=== PATIENT | male | born 1965 | race Caucasian/White ===

== ENCOUNTER 2020-05-29 17:16 | Emergency (ER) | payer BC ==
[2020-05-29] MEDS ORDERED: Famotidine 20 MG/2 ML SDV IVPUSH ONE (17:31)
[2020-05-29] MEDS ORDERED: Sodium Chloride 0.9% 10 ML Syringe FLUSH PRN (17:31)
--- NOTE | 2020-05-29 17:31 | EDM.PDOC ---
ED HPI GENERAL MEDICAL PROBLEM - General Chief Complaint: General Stated Complaint: "stomach ache/backache" Time Seen by Provider: 05/29/20 17:28 Source of Information: Reports: Patient, Family (), Old Records ([facility] chart/EMR) History Limitations: Reports: No Limitations - History of Present Illness INITIAL COMMENTS - FREE TEXT/NARRATIVE: The patient was brought to the emergency room via private automobile for evaluation of a one-week history of multiple nonspecific symptoms including epigastric discomfort consisting with "feeling hungry" with additional dry burning eyes and nonspecific lower mid 4/10 thoracic back pain. He has also noticed that his blood pressure has been somewhat elevated recently including at time of eye exam yesterday. His eye symptoms have improved with hydrops received from his chess instructor. The patient denies any chest pain/pressure, heart flutter, dizziness, orthostasis, orthopnea, diaphoresis, paresthesias, recent decreased exercise tolerance, or any other anginal-type symptoms. No recent history of abdominal pain, heartburn, nausea, diarrhea, melena, gross hematochezia, or any food intolerance, including fatty foods, etc. with normal bowel movement earlier this morning. He denies any gross hematuria, colic, UTI symptoms. The patient also denies any recent fever, cough, wheezing, dyspnea, etc.. No history of recent headaches, visual changes, diplopia, change in mental status, or other change in neurological status. Onset: Gradual Duration: Getting Worse, Intermittent Location: Reports: Abdomen, Back, Radiates to (As above). Denies: Head, Face, Neck, Chest, Pelvis, Upper Extremity, Left, Upper Extremity, Right Quality: Reports: Ache Severity: Mild Improves with: Reports: None Worsens with: Reports: None Context: Reports: Other (As above). Denies: Sick Contact, Trauma Associated Symptoms: Denies: Confusion, Chest Pain, Cough, Diaphoresis, Fever/Chills, Headaches, Loss of Appetite, Malaise, Nausea/Vomiting, Rash, Seizure, Shortness of Breath, Syncope Treatments EMERGENCY MEDICAL SERVICES COORDINATOR: Reports: Other (see below) (None) Middle Back Pain Score (Numeric/FACES): 4 - Related Data Allergies Allergy/AdvReac Type Severity Reaction Status Date / Time No Known Allergies Allergy Verified 05/29/20 17:17 Home Meds: Home Meds atorvaSTATin Calcium [Atorvastatin Calcium] 10 mg PO BEDTIME 11/01/18 [History] Multivit-Min/Folic/Vit K/Lycop [Men's 50 Plus Daily Formula Tb] 1 tab PO DAILY 05/29/20 [History] Omeprazole 20 mg PO BIDAC #20 cap.sr 05/29/20 [Rx] lisinopriL [Lisinopril] 5 mg PO BID #1 tablet 05/29/20 [Rx] Past Medical History HEENT History: Reports: Allergic Rhinitis, Cataract, Impaired Vision, Other (See Below). Denies: Glaucoma, Hard of Hearing, Macular Degeneration, Otitis Media, Retinal Detachment Other HEENT History: Presbyopia, Myopia, Astigmatism with the patient wearing glasses. Cardiovascular History: Reports: Arrhythmia, High Cholesterol, Hypertension. Denies: Afib, Aneurysm, Blood Clots/VTE/DVT, CAD, Heart Failure, Heart Murmur, SC, PVD, Syncope Other Cardiovascular History: Sinus bradycardia. Mixed hyperlipidemia. Respiratory History: Reports: None. Denies: Asthma, Bronchitis, Recurrent, COPD, Intubation, Previous, PE, Pneumonia, Recurrent, Pneumothorax, Sleep Apnea, TB Gastrointestinal History: Reports: Fatty Liver, Other (See Below). Denies: Celiac Disease, Cholelithiasis, Chronic Constipation, Chronic Diarrhea, Colon Polyp, Diverticulosis, Fecal Incontinence, Gastritis, GERD, GI Bleed, Hemorrhoids, Hepatitis, Irritable Bowel Syndrome, Jaundice, Pancreatitis, PUD Other Gastrointestinal History: LFTs elevation secondary to fatty liver. Genitourinary History: Reports: None. Denies: Acute Renal Failure, BPH, Chronic Renal Insuffiency, Renal Calculus, STD, Urinary Incontinence, UTI, Recurrent Musculoskeletal History: Reports: Arthritis, Back Pain, Chronic, Fracture, Osteoarthritis, Other (See Below). Denies: Amputation, Gout, Neck Pain, Chronic, RA, SLE Other Musculoskeletal History: Medial meniscus tear of left knee in 2014. Left ankle fracture about age 4. Neurological History: Reports: None. Denies: Cerebral Aneurysms, Concussion, CVA, Headaches, Chronic, Head Trauma, Migraines, MS, Neuropathy, Peripheral, Parkinson's, Seizure, TIA Psychiatric History: Reports: None. Denies: Abuse, Victim of, ADD, ADHD, Addiction, Anxiety, Depression, Psych Hospitalization(s), PTSD, Suicide Attempt, Suicidal Ideation Endocrine/Metabolic History: Reports: Obesity/BMI 30+. Denies: Diabetes, Type I, Diabetes, Type II, Diabetes Mellitus, Type 3c, Hypothyroidism, IDDM Hematologic History: Reports: None. Denies: Anemia, Blood Transfusion(s), Iron Deficiency Immunologic History: Reports: None. Denies: AIDS, HIV, SLE Oncologic (Cancer) History: Reports: None. Denies: Basal Cell Carcinoma, Colon, Hodgkin's Lymphoma, Leukemia, Malignant Melanoma, Non-Hodgkin's Lymphoma, Prostate, Squamous Cell Carcinoma Dermatologic History: Reports: None. Denies: Eczema, Psoriasis - Infectious Disease History Infectious Disease History: Reports: Chicken Pox. Denies: C-Difficile, Measles, Meningitis, Mononucleosis, MRSA, Mumps, Pertussis (Whooping Cough), Rheumatic Fever, Rubella, Scarlet Fever, Shingles, TB, VRE - Past Surgical History Head Surgeries/Procedures: Reports: None HEENT Surgical History: Reports: Oral Surgery, Other (See Below). Denies: Adenoidectomy, Cataract Surgery, Eye Surgery, Laser Surgery, LASIK, Myringotomy w Tube(s), Naso-Sinus Surgery, Tonsillectomy Other HEENT Surgeries/Procedures: Right lower dental implants in about 2018. Cardiovascular Surgical History: Reports: None. Denies: Varicose Respiratory Surgical History: Reports: None. Denies: Thoracentesis GI Surgical History: Reports: Colonoscopy, Other (See Below). Denies: Appendectomy, Cholecystectomy, EGD, Hernia, Abdominal, Hernia, Inguinal, Hernia Repair/Other, Polypectomy Other GI Surgeries/Procedures: Colonoscopy on 11/02/18. Male Surgical History: Reports: Circumcision, Other (See Below). Denies: Vasectomy Other Male Surgeries/Procedures: Circumcision as an infant. Endocrine Surgical History: Reports: None. Denies: Thyroid Biopsy Neurological Surgical History: Denies: C-Spine, Discectomy, Intracranial, Laminectomy, Lumbar Spine, Sacral Spine, Spinal Fusion, Thoracic Spine, Vertebroplasty Musculoskeletal Surgical History: Reports: Arthroscopic Knee, Arthroscopic Procedure, Other (See Below). Denies: Joint Replacement, ORIF, Shoulder Surgery Other Musculoskeletal Surgeries/Procedures:: Laparoscopic Left knee partial meniscectomy with debridement on 12/17/13. Oncologic Surgical History: Reports: None Dermatological Surgical History: Reports: None - Past Imaging History Past Imaging History: Reports: MRI (Left Knee in 2013), Stress Testing (Cardiolite Stress test in about 2009), Ultrasound (Abdominal ultrasound on 12/12/12) Social & Family History - Family History HEENT: Reports: None. Denies: Glaucoma, Macular Degeneration, Retinal Detachment Cardiac: Reports: Arrhythmia, Bypass, CAD, High Cholesterol, Hypertension, SC, Pacemaker, PVD/COD, Syncope, Other (See Below). Denies: Afib, Aneurysm, Blood Clots/VTE/DVT, Heart Failure, Heart Murmur Other Cardiac Family History: Hypertension in mother and father. Mother with four-vessel CABG in her mid 60s with subsequent pacemaker in her mid 70s. Maternal grandfather with fatal SC in his 60s. Hyperlipidemia in father. Father with recurrent syncope secondary to bradycardia with pacemaker at age 84. Mother with carotid endarterectomy in her mid 70s. Respiratory: Reports: None. Denies: Asthma, COPD, PE, Pneumothorax, Sleep Apnea GI: Reports: None. Denies: Celiac Disease, Cholelithiasis, Colon Polyps, GERD, GI bleed, Inflammatory Bowel Disease, Irritable Bowel Syndrome, PUD : Reports: None. Denies: Renal Calculus, Renal Disease/Insufficiency OBGYN: Reports: None. Denies: Endometriosis, Recurrent Spontaneous Musculoskeletal: Reports: None. Denies: Gout, RA, SLE Neurological: Reports: CVA, Other (See Below). Denies: Alzheimers Disease, Cerebral Aneurysms, Dementia, Migraines, MS, Parkinson's, Seizure, TIA Other Neurological Family History: Paternal grandfather with CVA in his 60s. Psychiatric: Reports: None. Denies: Abuse, Victim of, ADD, ADHD, Anxiety, Depression, Psych Hospitalization(s), PTSD, Suicide Attempt Endocrine/Metabolic: Reports: None. Denies: Diabetes, Type I, Diabetes, type II, Diabetes Mellitus, Type 3c, Hypothyroidism, IDDM Hematologic: Reports: None. Denies: SLE Immunologic: Reports: None. Denies: AIDS, HIV, SLE Dermatologic: Reports: None. Denies: Eczema, Psoriasis Oncologic: Reports: Breast, Other (See Below). Denies: Hodgkin's Lymphoma, Ly mphoma, Non-Hodgkin's Lymphoma, Prostate, Skin Other Oncologic Family History: Mother with breast cancer in her late 50s. - Tobacco Use Smoking Status *Q: Never Smoker Tobacco Use Within Last Twelve Months: No Used Tobacco, but Quit: No Smoking Cessation Information Provided To Patient: No Second Hand Smoke Exposure: No Second Hand Smoke Education Provided: No - Caffeine Use Caffeine Use: Reports: Coffee (One cup per week), Soda (3 Sodas per day), Tea (1 bottle per day). Denies: Energy Drinks - Alcohol Use Alcohol Use History: Yes Days Per Week of Alcohol Use: 1 Number of Drinks Per Day: 6 Number of Drinks Per Day Comment: Usually Beer. No previous DWIs, problems with alcohol abuse, etc. Total Drinks Per Week: 6 Alcohol Use in Last Twelve Months: Yes - Recreational Drug Use Recreational Drug Use: No Drug Use in Last 12 Months: No Recreational Drug Type: Denies: Amphetamines (Speed), Cocaine, Heroin, Inhalants (Glues, Solvents, Aerosols), LSD (Acid), Marijuana/Hashish, Methamphetamine, Morphine, Oxycodone - Living Situation & Occupation Living situation: Reports: (1986, 3 children), with Family () Occupation: Employed ([employer]) ED ROS GENERAL - Review of Systems Review Of Systems: Comprehensive ROS is negative, except as noted in HPI. ED EXAM, GENERAL - Physical Exam Exam: See Below Exam Limited By: No Limitations General Appearance: Alert, WD/WN, No Apparent Distress Eye Exam: Bilateral Eye: EOMI, Normal Inspection (No nystagmus. Patient wears glasses), PERRL Ears: Normal External Exam, Normal Canal, Hearing Grossly Normal, Normal TMs Nose: Normal Inspection, Normal Mucosa, No Blood Throat/Mouth: Normal Inspection, Normal Lips, Normal Gums, Normal Oropharynx, Normal Voice, No Airway Compromise. No: Normal Teeth (Caries in the right upper premolar region with occasional missing teeth), Dysphagia, Perioral Cyanosis Head: Atraumatic, Normocephalic. No: Facial Swelling, Facial Tenderness, Sinus Tenderness Neck: Normal Inspection, Supple, Non-Tender, Full Range of Motion. No: Carotid Bruit, Lymphadenopathy (L), Lymphadenopathy (R), Thyromegaly Respiratory/Chest: No Respiratory Distress, Lungs Clear, Normal Breath Sounds, No Accessory Muscle Use, Chest Non-Tender. No: Pleural Rub, Retractions Cardiovascular: Normal Peripheral Pulses, No Edema, No Gallop, No JVD, No Murmur, No Rub, Bradycardia. No: Extra Beats (With no extrasystoles at time of exam), Friction Rub Peripheral Pulses: 2+: Radial (L), Radial (R), Dorsalis Pedis (L), Dorsalis Pedis (R) GI/Abdominal: Normal Bowel Sounds, Soft, Non-Tender, No Organomegaly, No Distention, No Abnormal Bruit, No Mass, Other (obese). No: Guarding (Male) Exam: Deferred Rectal (Males) Exam: Deferred Back Exam: Normal Inspection, Full Range of Motion. No: CVA Tenderness (L), CVA Tenderness (R), Muscle Spasm Extremities: Normal Inspection, Normal Range of Motion, Non-Tender, No Pedal Edema, Normal Capillary Refill. No: She's Sign Neurological: Alert, Oriented, CN II-XII Intact, Normal Cognition, Normal Gait, Normal Reflexes (Negative Babinski's), No Motor/Sensory Deficits Psychiatric: Normal Affect, Normal Mood Skin Exam: Warm, Dry, Intact, Normal Color, No Rash. No: Diaphoretic, Ecchymosis, Petechiae Lymphatic: No Adenopathy EKG INTERPRETATION EKG Date: 05/29/20 Time: 17:38 Rhythm: Other (Sinus bradycardia) Rate (Beats/Min): 52 [place]: Normal (Left cardiac axis) P-Wave: Present (Mild diffuse biphasic P waves with poor R-wave progression in the anterior leads) QRS: Wide (0.10 seconds representing repolarization changes) ST-T: Normal (T-wave inversion in lead 3) QT: Normal MN/PQ Interval: 0.13 seconds representing a short MN interval with no delta waves noted Comparison: NA - No Prior EKG EKG Interpretation Comments: 1. No ischemic changes 2. Moderate bradycardia 3. Short MN interval 4. Repolarization changes Course - Vital Signs Last Recorded V/S: Last Vital Signs Temp 36.7 C 05/29/20 17:20 Pulse 54 L 05/29/20 18:41 Resp 18 05/29/20 18:41 BP 157/89 H 05/29/20 18:41 Pulse Ox 96 05/29/20 18:41 Vital Signs - 24 hr 05/29/20 05/29/20 05/29/20 17:20 17:25 17:40 Temperature [ 36.7 C Oral] Pulse, 50 L 55 L 54 L Peripheral [ Pulse Oximetry] Respiratory 15 18 20 Rate Blood Pressure 160/84 H 164/88 H 161/85 H [Left Upper Arm ] O2 Sat by Pulse 96 97 97 Oximetry 05/29/20 05/29/20 18:00 18:41 Temperature [ Oral] Pulse, 53 L 54 L Peripheral [ Pulse Oximetry] Respiratory 20 18 Rate Blood Pressure 167/94 H 157/89 H [Left Upper Arm ] O2 Sat by Pulse 99 96 Oximetry - Orders/Labs/Meds Orders: Active Orders 24 hr Category Date Time Status Cardiac Monitoring [RC] . DIRECTED Care 05/29/20 17:32 Active EKG Documentation Completion [RC] ASDIRECTED Care 05/29/20 17:32 Active Oxygen Therapy, ED [RC] PRN Care 05/29/20 17:32 Active Peripheral IV Care [RC] . DIRECTED Care 05/29/20 17:32 Active Pulse Oximetry [RC] CONTINUOUS Care 05/29/20 17:32 Active Up With Assistance [RC] PFP Care 05/29/20 17:32 Active Vital Signs [RC] PFP Care 05/29/20 17:32 Active Chest 1V Frontal [CR] Stat Exams 05/29/20 17:32 Taken INR,PT,PROTHROMBIN TIME [COAG] Stat Lab 05/29/20 17:40 Results PTT,PARTIAL THROMBOPLSTIN TIME [COAG] Stat Lab 05/29/20 17:40 Results Sodium Chloride 0.9% [Saline Flush] Med 05/29/20 17:31 Active 10 ml FLUSH ASDIRECTED PRN Obtain Past Medical Record [OM.PC] Urgent Oth 05/29/20 17:32 Active Peripheral IV Insertion Adult [OM.PC] Stat Oth 05/29/20 17:32 Ordered Resuscitation Status Stat Resus Stat 05/29/20 17:31 Ordered EKG 12 Lead [EK] Stat Ther 05/29/20 17:32 Ordered Labs: Laboratory Tests 05/29/20 05/29/20 05/29/20 Range/Units 17:40 17:40 17:40 WBC 8.8 (4.0-10.2) K/uL RBC 5.02 (4.33-5.41) M/uL Hgb 15.2 (13.1-16.8) g/dL Hct 44.9 (39.0-49.0) % MCV 89.4 (84.0-98.0) fL MCH 30.3 (28.2-33.3) pg MCHC 33.9 (31.7-36.0) g/dL RDW 12.6 (11.2-14.1) % Plt Count 179 (150-350) K/uL Neut % (Auto) 64.2 (45.0-80.0) % Lymph % (Auto) 25.2 (10.0-50.0) % [place] % (Auto) 8.6 (2.0-14.0) % Eos % (Auto) 1.7 (0.0-5.0) % Baso % (Auto) 0.3 (0.0-2.0) % Neut # (Auto) 5.65 (1.40-7.00) K/uL Lymph # (Auto) 2.22 (0.50-3.50) K/uL [place] # (Auto) 0.76 (0.00-1.00) K/uL Eos # (Auto) 0.15 (0.00-0.50) K/uL Baso # (Auto) 0.03 (0.00-0.20) K/uL PT 9.9 (9.5-12.0) SEC INR 1.0 D-Dimer, Quantitative < 100 (0-400) ng/mL Sodium (136-145) mmol/L Potassium (3.5-5.1) mmol/L Chloride (98-107) mmol/L Carbon Dioxide (21.0-32.0) mmol/L BUN (7-18) mg/dL Creatinine (0.51-1.17) mg/dL Est Cr Clr Drug Dosing Estimated GFR (MDRD) mL/min Glucose (74-106) mg/dL Lactic Acid (0.4-2.0) mmol/L Uric Acid (2.6-7.2) mg/dL Calcium (8.5-10.1) mg/dL Magnesium (1.8-2.4) mg/dL Total Bilirubin (0.2-1.0) mg/dL AST (15-37) U/L ALT (12-78) U/L Alkaline Phosphatase (46-116) IU/L Creatine Kinase (26-308) U/L Creatine Kinase Index (0.0-2.5) % CK-MB (CK-2) (0.00-3.60) ng/mL Troponin I (0.000-0.056) ng/mL NT-Pro-B Natriuret Pep (0-125) pg/mL Total Protein (6.4-8.2) g/dL Albumin (3.4-5.0) g/dL Amylase (25-115) U/L Lipase (73-393) U/L TSH, Ultra Sensitive (0.358-3.740) mIU/mL 05/29/20 05/29/20 Range/Units 17:40 17:40 WBC (4.0-10.2) K/uL RBC (4.33-5.41) M/uL Hgb (13.1-16.8) g/dL Hct (39.0-49.0) % MCV (84.0-98.0) fL MCH (28.2-33.3) pg MCHC (31.7-36.0) g/dL RDW (11.2-14.1) % Plt Count (150-350) K/uL Neut % (Auto) (45.0-80.0) % Lymph % (Auto) (10.0-50.0) % [place] % (Auto) (2.0-14.0) % Eos % (Auto) (0.0-5.0) % Baso % (Auto) (0.0-2.0) % Neut # (Auto) (1.40-7.00) K/uL Lymph # (Auto) (0.50-3.50) K/uL [place] # (Auto) (0.00-1.00) K/uL Eos # (Auto) (0.00-0.50) K/uL Baso # (Auto) (0.00-0.20) K/uL PT (9.5-12.0) SEC INR D-Dimer, Quantitative (0-400) ng/mL Sodium 139 (136-145) mmol/L Potassium 4.0 (3.5-5.1) mmol/L Chloride 105 (98-107) mmol/L Carbon Dioxide 27.3 (21.0-32.0) mmol/L BUN 22 H (7-18) mg/dL Creatinine 0.79 (0.51-1.17) mg/dL Est Cr Clr Drug Dosing TNP Estimated GFR (MDRD) > 60 mL/min Glucose 112 H (74-106) mg/dL Lactic Acid 0.9 (0.4-2.0) mmol/L Uric Acid 5.7 (2.6-7.2) mg/dL Calcium 9.1 (8.5-10.1) mg/dL Magnesium 2.0 (1.8-2.4) mg/dL Total Bilirubin 0.5 (0.2-1.0) mg/dL AST 27 (15-37) U/L ALT 50 (12-78) U/L Alkaline Phosphatase 83 (46-116) IU/L Creatine Kinase 130 (26-308) U/L Creatine Kinase Index 1.5 (0.0-2.5) % CK-MB (CK-2) 1.90 (0.00-3.60) ng/mL Troponin I 0.000 (0.000-0.056) ng/mL NT-Pro-B Natriuret Pep 50 (0-125) pg/mL Total Protein 7.5 (6.4-8.2) g/dL Albumin 3.9 (3.4-5.0) g/dL Amylase 115 (25-115) U/L Lipase 301 (73-393) U/L TSH, Ultra Sensitive 2.172 (0.358-3.740) mIU/mL Meds: Medications Discontinued Medications Generic Name Dose Route Start Last Admin Trade Name Freq PRN Reason Stop Dose Admin Famotidine 40 mg 05/29/20 17:31 05/29/20 17:47 Pepcid IVPUSH 05/29/20 17:32 40 mg ONETIME ONE Administration Sodium Chloride 10 ml 05/29/20 17:31 05/29/20 17:48 Saline Flush FLUSH 10 ml ASDIRECTED PRN Administration Keep Vein Open - Radiology Interpretation Free Text/Narrative:: manager beauty shows moderate sinus bradycardia in the low to mid-50s with occasional uniform PVCs with lowest pulse of 48 and no evidence of other arrhythmia, etc. Chest X-ray, portable, shows evidence of borderline cardiomegaly with mild pulmonary obstructive disease and evidence of possible pulmonary hypertension and/or mild centralized CHF. Mild prominence of the proximal aortic arch. Departure - Departure Time of Disposition: 18:50 Disposition: Home, Self-Care 01 Condition: Good Clinical Impression: Peptic reflux disease, Hypertension, Osteoarthritis, Hyperlipidemia, Bradycardia, PVC's (premature ventricular contractions) - Discharge Information *PRESCRIPTION DRUG MONITORING PROGRAM REVIEWED*: Not Applicable *COPY OF PRESCRIPTION DRUG MONITORING REPORT IN PATIENT DENNY: Not Applicable Prescriptions: lisinopriL [Lisinopril] 5 mg PO BID #1 tablet Omeprazole 20 mg PO BIDAC #20 cap.sr Instructions: Heartburn, [id number]-[id number], Heart-Healthy Eating Plan, [id number], Hypertension, Adult, [id number] Referrals: Odalys Yost PA-C [Primary Care Provider] - Forms: ED Department Discharge Additional Instructions: 1. Followup with your regular provider in 7-10 days as directed or reevaluation and recommended repeat basic metabolic panel. Bring these discharge instructions with you to that visit. 2. Blood pressure checks in the a.m. and p.m., i.e., before you take your lisinopril, with records to be brought to each doctor's visit 3. Further workup for your heart and/or stomach depending on your follow-up blood work, blood pressures, and clinical course. 4. Immediately after this visit verify that your cellular telephone's voicemail has been activated and is empty. Also verify that your home telephone's answering machine is operating properly and has space to receive messages. Note that it is sometimes necessary for us to be able to contact you at a later date to discuss your medical care. 5. Please remember that we are ALWAYS here for you and want to answer any questions you may have. Feel free to call the hospital any time and we call you back RAYA. Sepsis Event Note (ED) - Evaluation Sepsis Screening Result: No Definite Risk - Focused Exam Vital Signs: Vital Signs Temp Pulse Resp BP Pulse Ox 05/29/20 18:41 54 L 18 157/89 H 96 05/29/20 18:00 53 L 20 167/94 H 99 05/29/20 17:40 54 L 20 161/85 H 97 05/29/20 17:25 55 L 18 164/88 H 97 05/29/20 17:20 36.7 C 50 L 15 160/84 H 96 - Problem List & Annotations (1) Peptic reflux disease SNOMED Code(s): 576689256 Code(s): K21.9 - GASTRO-ESOPHAGEAL REFLUX DISEASE WITHOUT ESOPHAGITIS Status: Acute Current Visit: Yes (2) Hypertension SNOMED Code(s): 40175170 Code(s): I10 - ESSENTIAL (PRIMARY) HYPERTENSION Status: Acute Current Visit: Yes Qualifiers: Hypertension type: essential hypertension Qualified Code(s): I10 - Essential (primary) hypertension (3) Bradycardia SNOMED Code(s): 33836175 Code(s): R00.1 - BRADYCARDIA, UNSPECIFIED Status: Chronic Priority: High Current Visit: Yes Annotation/Comment:: History of moderate bradycardia with negative distant Cardiolite stress test as above. Patient is not on any medications, which would cause bradycardia. Continue to observe closely by regular provider with consideration of event monitor, etc. depending on his clinical course. (4) Hyperlipidemia SNOMED Code(s): 83243257 Code(s): E78.5 - HYPERLIPIDEMIA, UNSPECIFIED Status: Acute Current Visit: Yes Qualifiers: Hyperlipidemia type: mixed hyperlipidemia Qualified Code(s): E78.2 - Mixed hyperlipidemia (5) Osteoarthritis SNOMED Code(s): 408642962 Code(s): M19.90 - UNSPECIFIED OSTEOARTHRITIS, UNSPECIFIED SITE Status: Acute Current Visit: Yes Qualifiers: Osteoarthritis location: multiple joints Osteoarthritis type: primary Qualified Code(s): M89.49 - Other hypertrophic osteoarthropathy, multiple sites (6) PVC's (premature ventricular contractions) SNOMED Code(s): 95776589 Code(s): I49.3 - VENTRICULAR PREMATURE DEPOLARIZATION Status: Acute Current Visit: Yes - Problem List Review Problem List Initiated/Reviewed/Updated: Yes - My Orders Last 24 Hours: My Active Orders 05/29/20 17:31 Sodium Chloride 0.9% [Saline Flush] 10 ml FLUSH ASDIRECTED PRN Resuscitation Status Stat 05/29/20 17:32 Cardiac Monitoring [RC] . DIRECTED EKG Documentation Completion [RC] ASDIRECTED Oxygen Therapy, ED [RC] PRN Peripheral IV Care [RC] . DIRECTED Pulse Oximetry [RC] CONTINUOUS Up With Assistance [RC] PFP Vital Signs [RC] PFP Chest 1V Frontal [CR] Stat Obtain Past Medical Record [OM.PC] Urgent Peripheral IV Insertion Adult [OM.PC] Stat EKG 12 Lead [EK] Stat 05/29/20 17:40 INR,PT,PROTHROMBIN TIME [COAG] Stat PTT,PARTIAL THROMBOPLSTIN TIME [COAG] Stat - Assessment/Plan Last 24 Hours: My Active Orders 05/29/20 17:31 Sodium Chloride 0.9% [Saline Flush] 10 ml FLUSH ASDIRECTED PRN Resuscitation Status Stat 05/29/20 17:32 Cardiac Monitoring [RC] . DIRECTED EKG Documentation Completion [RC] ASDIRECTED Oxygen Therapy, ED [RC] PRN Peripheral IV Care [RC] . DIRECTED Pulse Oximetry [RC] CONTINUOUS Up With Assistance [RC] PFP Vital Signs [RC] PFP Chest 1V Frontal [CR] Stat Obtain Past Medical Record [OM.PC] Urgent Peripheral IV Insertion Adult [OM.PC] Stat EKG 12 Lead [EK] Stat 05/29/20 17:40 INR,PT,PROTHROMBIN TIME [COAG] Stat PTT,PARTIAL THROMBOPLSTIN TIME [COAG] Stat Assessment:: As above Plan: As above. Extensive precautions were given to the patient and his , who are in agreement with the treatment plan. See Patient Instructions for further treatment and plan.
[2020-05-29 18:14] LABS: CHLORIDE,CL 105 mmol/L (98-107); SODIUM,NA 139 mmol/L (136-145)
[2020-05-29 18:56] LABS: PTT,PARTIAL THROMBOPLSTIN TIME 25.4 SEC (24.5-32.8)
== END 2020-05-29 18:48 | disposition home or self-care (01) ==
LOC: LL.ED 17:16
DX: K21.9 Gastro-esophageal reflux disease without esophagitis (principal); I49.3 Ventricular premature depolarization; I10 Essential (primary) hypertension; M19.90 Unspecified osteoarthritis, unspecified site; R00.1 Bradycardia, unspecified; E78.5 Hyperlipidemia, unspecified
CPT/HCPCS: 71045; 80053; 82150; 82550; 82553; 83605; 83690; 83735; 83880; 84443; 84484; 84550; 85025; 85379; 85610; 85730; 93005; 96374; 99284-25; J3490